=== PATIENT | male | born 1960 | race Caucasian/White ===

== ENCOUNTER 2020-09-21 23:31 | Observation (INO) ==
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
[2020-09-22] MEDS ORDERED: SODIUM CHLORIDE 0.9% IV ONE (01:45)
[2020-09-22] MEDS ORDERED: GENTAMICIN SULFATE IV ONE (01:45)
[2020-09-22] MEDS ORDERED: HALOPERIDOL LACTATE 5 MG/ML VIAL IV PRN (01:53)
[2020-09-22] MEDS: ceFAZolin 2 GM in DEXTROSE 5% IN WATER 50 ML IV SCH ×2 (02:05→10:26)
[2020-09-22] MEDS: LACTATED RINGERS 1,000 ML IV SCH ×4 (02:16→15:55)
[2020-09-22 02:18] LABS: POC Calcium, Ionized 1.13 mmEq/L (1.16-1.32); POC Creatinine 0.7 mg/dL (0.6-1.2); POC Potassium 3.4 mEql/L (3.3-5.1)
[2020-09-22 02:56] LABS: Basophils # (Auto) 0.05 K/mcL (0.00-0.20); Basophils % (Auto) 0.4 % (0.0-2.0); Eosinophils # (Auto) 0.29 K/mcL (0.00-0.70); Eosinophils % (Auto) 2.4 % (0.0-7.0); Hematocrit 38.2 % (41.0-55.0); Hemoglobin 12.9 g/dL (13.5-16.5); Lymphocytes # (Auto) 2.46 K/mcL (1.50-4.80); Lymphocytes % (Auto) 20.7 % (15.0-49.0); Mean Corpuscular HGB Conc 33.8 g/dL (31.0-36.0); Mean Platelet Volume 8.4 fL (7.4-10.4); Monocytes % (Auto) 7.6 % (1.0-12.0); Neutrophils % (Auto) 68.9 % (38.0-78.0); Platelet Count 244 K/mcL (140-440); RBC 3.98 M/mcL (4.50-5.90); Red Cell Distribution Width 12.5 % (11.5-14.5); WBC 11.9 K/mcL (4.5-11.0)
[2020-09-22 03:16] LABS: Alcohol,Blood 0.015 gm/dL (<0.010)
--- NOTE | 2020-09-22 03:40 | XRay Report ---
CLINICAL INFORMATION: trauma COMPARISON: Right hand 08/01/2013 FINDINGS: No acute fracture identified. Malunified fracture of the fifth metacarpal with mild bowing deformity is identical to the previous radiograph. Joint spaces are normal in width and alignment without arthritic change. No soft tissue abnormality. IMPRESSION: No acute fracture. Malunified old fifth metacarpal fracture resulting in slight bowing deformity. Interpreted and Authenticated by: Sami Lucio 09/22/20
--- NOTE | 2020-09-22 03:41 | XRay Report ---
CLINICAL INFORMATION: trauma COMPARISON: None. FINDINGS: Severely comminuted transverse fracture through the olecranon is appreciated. The olecranon fragment is displaced superiorly approximately 1 cm and rotated anteriorly. Moderate posttraumatic hemarthrosis distends the anterior and posterior extrasynovial fat pads. IMPRESSION: Severely comminuted mildly displaced fracture of the olecranon with moderate hemarthrosis Interpreted and Authenticated by: Sami Lucio 09/22/20
[2020-09-22] MEDS ORDERED: GENTAMICIN SULFATE 80 MG/2 ML VIAL ONE (04:37)
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
--- NOTE | 2020-09-22 05:02 | Cat Scan Report ---
CLINICAL INFORMATION: Trauma COMPARISON: Cervical spine CT 02/24/2016 TECHNIQUE: 0.625 mm helical slices were obtained from the skull base through the superior T2 end plate, and following reconstruction, 2.5 mm sagittal, coronal and axial reformations were then processed. The exam was reviewed at bone and soft tissue windows. The exam was performed using radiation dose optimization techniques including, but not limited to, automated exposure control, adjustment of the mA and/or kV according to patient size and use of iterative reconstruction technique. FINDINGS: The sagittal coronal reformatted images show the cervical spine is anatomically aligned. There is an old nonunified fracture through the C7 spinous process tip which should be stable and insignificant. No other fractures identified. No acute posttraumatic change. Cervical cord is normal in contour and caliber without hemorrhage. No soft tissue abnormality. The C2-3 disc level is normal. At C3-4, a mild broad disc spur complex results in moderate left lateral recess/IV foraminal narrowing. At C4-5, moderate broad far left disc spur complex and facet arthropathy results in severe left lateral recess and IV foraminal narrowing impinging exiting left C5 nerve root. Mild central canal stenosis At C5-6, moderate broad disc spur complex with right-sided asymmetry resulting in severe right lateral recess last IV foraminal narrowing impinging the exiting right C6 nerve root. Mild central canal stenosis At C6-7, moderate broad disc spur complex results in moderate left and severe right lateral recess/IV foraminal narrowing impinging the exiting right C7 nerve root. The C7-T1 disc level is normal. IMPRESSION: 1. No acute fracture or other significant posttraumatic change. 2. Old ununited minimally displaced fracture of the C7 spinous process tip again noted. This is stable and should be consideredclinically insignificant 3. Multilevel degenerative change resulting in central canal lateral recess and IV foraminal narrowing at the levels described no change Interpreted and Authenticated by: Sami Lucio 09/22/20
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
[2020-09-22 07:33] LABS: Appearance,Urine HAZY (Clear); Bilirubin,Urine Negative (Negative); Color,Urine YELLOW; Culture Indicated,Urine No; Glucose,Urine (UA) Negative (Negative); Ketones,Urine Negative (Negative); Leukocyte Esterase,Urine Negative /ug (Negative); Nitrate,Urine Negative (Negative); Protein,Urine Negative (Negative); Urine Blood Negative (Negative); Urobilinogen,Urine Negative
[2020-09-22] MEDS ORDERED: SCOPOLAMINE 1 PATCH PATCH TOPICAL PRN (09:00)
[2020-09-22] MEDS ORDERED: IPRATROPIUM/ALBUTEROL 3 ML AMPUL.NEB NEB ONE (09:38)
[2020-09-22] MEDS ORDERED: NICOTINE 21 MG PATCH TOPICAL SCH (10:00)
[2020-09-22] MEDS ORDERED: PROPOFOL 200 MG/20 ML VIAL IV ONE (11:48)
[2020-09-22] MEDS ORDERED: fentaNYL 100 MCG/2 ML VIAL IV ONE (11:48)
[2020-09-22] MEDS ORDERED: PHENYLEPHRINE 10 MG/ML VIAL ONE (11:48)
[2020-09-22] MEDS ORDERED: GLYCOPYRROLATE 0.2 MG/ML VIAL IV ONE (11:48)
[2020-09-22] MEDS ORDERED: ONDANSETRON 4 MG/2 ML VIAL ONE (11:48)
[2020-09-22] MEDS ORDERED: LIDOCAINE HCL/PF 100 MG/5 ML SYRINGE IV ONE (11:48)
[2020-09-22] MEDS ORDERED: DEXAMETHASONE 10 MG/ML VIAL ONE (11:48)
[2020-09-22] MEDS ORDERED: KETAMINE 50 MG/ML ML ONE (11:48)
[2020-09-22] MEDS ORDERED: NALOXONE HCL 0.4 MG/ML VIAL IV PRN (12:09)
[2020-09-22] MEDS ORDERED: ONDANSETRON 4 MG/2 ML VIAL IV PRN (12:09)
[2020-09-22] MEDS ORDERED: fentaNYL 100 MCG/2 ML VIAL IV PRN (12:09)
[2020-09-22] MEDS ORDERED: LACTATED RINGERS 250 ML IV PRN (12:09)
[2020-09-22] MEDS ORDERED: METOPROLOL TARTRATE 5 MG/5 ML VIAL IV PRN (12:09)
[2020-09-22] MEDS ORDERED: LABETALOL 5 MG/ML ML IV PRN (12:09)
[2020-09-22] MEDS ORDERED: ACETAMINOPHEN 1,000 MG/100 ML BAG IV ONE (12:09)
[2020-09-22] MEDS ORDERED: MEPERIDINE 25 MG/ML VIAL IV PRN (12:09)
[2020-09-22] MEDS ORDERED: METHOCARBAMOL 1,000 MG/10 ML VIAL IV PRN (12:09)
[2020-09-22] MEDS ORDERED: IPRATROPIUM/ALBUTEROL 3 ML AMPUL.NEB NEB PRN (12:09)
[2020-09-22] MEDS ORDERED: FLUMAZENIL 0.1 MG/ML ML IV PRN (12:09)
[2020-09-22] MEDS ORDERED: BENZOCAINE/MENTHOL 1 LOZENGE PO PRN (12:09)
[2020-09-22] MEDS ORDERED: LACTATED RINGERS 1,000 ML IV SCH (12:15)
[2020-09-22] MEDS ORDERED: HYDROCODONE/APAP 7.5/325MG TABLET PO PRN (13:51)
[2020-09-22] MEDS ORDERED: ONDANSETRON 4 MG ODT TABLET SL PRN (13:51)
--- NOTE | 2020-09-22 13:56 | Brief Operative Note ---
Brief Operative Note Date of procedure: 09/22/20 Pre-op diagnosis: open olecranon fracture Right Procedure: I and D with ORIF Grafts/Implants: Yes Anesthesia: GETA Complications: none Surgeon: Neo Shafer Estimated blood loss (cc): 10 Condition: stable Disposition: PACU
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
[2020-09-22] MEDS ORDERED: 0.9 % SODIUM CHLORIDE 10 ML SYRINGE IV SCH (14:00)
[2020-09-22] MEDS ORDERED: BUPIVACAINE 0.5% 50 ML VIAL IJ ONE (15:09)
[2020-09-22] MEDS ORDERED: ceFAZolin 1 GM VIAL IV SCH (16:00)
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
== END 2020-09-22 16:20 | disposition home or self-care (01) ==
LOC: MEDSUR 23:31 → ED 23:31 → MEDSUR 09-22 03:05
PROVIDERS: ADMIT Orthopaedic Surgery Orthopaedic Surgery of the Spine; ATTEND Orthopaedic Surgery Orthopaedic Surgery of the Spine